=== PATIENT | male | born 1995 | race Caucasian/White ===

== ENCOUNTER → 2017-04-28 | Outpatient (CLI) | payer BC ==
[~2017-04-28] MED LIST: IOPAMIDOL (ISOVUE 370) 100 ML BTL IV ONE
== END ==
LOC: FIMAGING 12:09
PROVIDERS: ATTEND Physician Assistant
DX: Q25.1 Coarctation of aorta (principal); Q24.5 Malformation of coronary vessels
CPT/HCPCS: Q9967